=== PATIENT | male | born 1980 | race Two or more races ===

== ENCOUNTER 2021-06-07 22:04 | Emergency (ER) | payer OTHER ==
[~2021-06-07] VITALS: Ht 182.9 cm; Wt 79.4 kg
== END 2021-06-08 00:45 | disposition home or self-care (01) ==
LOC: ER 22:04
DX: S61.213A Laceration without foreign body of left middle finger without damage to nail, initial encounter (principal); W45.8XXA Other foreign body or object entering through skin, initial encounter; Y93.9 Activity, unspecified; Y92.9 Unspecified place or not applicable; Y99.9 Unspecified external cause status; Z88.5 Allergy status to narcotic agent

== ENCOUNTER 2022-01-18 15:21 | Outpatient (CLI) | payer OTHER | END 2022-01-18 15:25 | disposition home or self-care (01) | LOC: LAB 15:21 | PROVIDERS: ATTEND Obstetrics & Gynecology | DX: Z20.818 Contact with and (suspected) exposure to other bacterial communicable diseases (principal); Z20.828 Contact with and (suspected) exposure to other viral communicable diseases ==